=== PATIENT | female | born 1980 | race Two or more races ===

== ENCOUNTER 2017-05-01 18:38 | Emergency (ER) | payer SELFPAY ==
[2017-05-01 18:38] VITALS: BMI 24.0
[2017-05-01 18:54] VITALS: BP 127/82; RESP 20
--- NOTE | 2017-05-01 19:37 | C.PDOC ---
History Of Present Illness 37 y/o female presents to the ED for evaluation of itchy lesions to arms and torso which began after she consumed some new food earlier today. Patient notes experiencing similar allergic reaction in the past. She notes skin redness that comes and goes. Patient denies fever, chills, throat swelling, difficulty swallowing/breathing. Patient notes taking Benadryl without improvement. Time Seen by Provider: 05/01/17 19:30 Chief Complaint (Nursing): Abnormal Skin Integrity History Per: Patient History/Exam Limitations: no limitations Onset/Duration Of Symptoms: Hrs Current Symptoms Are (Timing): Still Present Location Of Injury: Right: Arm, Left: Arm Quality Of Symptoms: Itching Additional History Per: Patient Past Medical History Reviewed: Historical Data, Nursing Documentation, Vital Signs Vital Signs: Last Vital Signs Temp 98.4 F 05/01/17 20:20 Pulse 81 05/01/17 20:20 Resp 20 05/01/17 20:20 BP 127/82 05/01/17 20:20 Pulse Ox 99 05/01/17 21:54 - Medical History PMH: Gastritis Surgical History: Appendectomy (2013), Family History: States: Unknown Family Hx - Social History Hx Tobacco Use: No Hx Alcohol Use: No Hx Substance Use: No - Immunization History Hx Tetanus Toxoid Vaccination: No Hx Influenza Vaccination: Yes ("January 2016") Hx Pneumococcal Vaccination: Yes Review Of Systems Except As Marked, All Systems Reviewed And Found Negative. Constitutional: Negative for: Fever, Chills ENT: Negative for: Mouth Swelling, Throat Swelling Skin: Positive for: Other (+itchy lesions to b/l arms and torso ) Physical Exam - Physical Exam Appears: Non-toxic, No Acute Distress Skin: Rash (few erythematous pruritic papules to torso, thighs, and back ) Head: Atraumatic Eye(s): bilateral: Normal Inspection Oral Mucosa: Moist Neck: Supple Chest: Symmetrical, No Deformity, No Tenderness Cardiovascular: Rhythm Regular, No Murmur Respiratory: Normal Breath Sounds, No Rales, No Rhonchi, No Wheezing Extremity: Normal ROM, Capillary Refill (less than 2 seconds ) Neurological/Psych: Oriented x3, Normal Speech, Normal Cognition Gait: Steady ED Course And Treatment O2 Sat by Pulse Oximetry: 99 (on RA) Pulse Ox Interpretation: Normal Medical Decision Making Medical Decision Making: pt with itchy rash that gets red, similar to allergic reactions in the past. no diff swallowing or breathing. will d/c with steroids and pepcid, continue with benadryl Disposition Counseled Patient/Family Regarding: Diagnosis, Need For Followup, Rx Given - Disposition Referrals: Aleksandr Alicia MD [Staff Provider] - Disposition: HOME/ ROUTINE Disposition Time: 20:09 Condition: STABLE Additional Instructions: Follow up with your doctor in a few days. Take medications as prescribed and continue taking Benadryl. Return to ER for any worsening symptoms. Avoid new foods. Prescriptions: Famotidine [Pepcid] 20 mg PO DAILY #14 tab predniSONE [predniSONE Tab] 40 mg PO DAILY #8 tab Instructions: Food Allergy (ED) Forms: General Discharge Instructions - Clinical Impression Clinical Impression: Allergic reaction - PA / PIVOT MAKER / Resident Statement MD/DO has reviewed & agrees with the documentation as recorded. - Scribe Statement The provider has reviewed the documentation as recorded by the Scribe (Mignon Florentino) All medical record entries made by the Scribe were at my direction and personally dictated by me. I have reviewed the chart and agree that the record accurately reflects my personal performance of the history, physical exam, medical decision making, and the department course for this patient. I have also personally directed, reviewed, and agree with the discharge instructions and disposition.
[2017-05-01 20:20] VITALS: PULSE 81; TEMP 98.4
[2017-05-01 21:52] VITALS: O2SAT 99
== END 2017-05-01 20:24 | disposition home or self-care (01) ==
LOC: C.ER 18:38
DX: T78.1XXA Other adverse food reactions, not elsewhere classified, initial encounter (principal); X58.XXXA Exposure to other specified factors, initial encounter

== ENCOUNTER 2017-08-18 12:58 | Emergency (ER) | payer OTHER ==
[2017-08-18 12:59] VITALS: BMI 24.0
[2017-08-18 13:15] VITALS: O2SAT 100
--- NOTE | 2017-08-18 13:49 | C.PDOC ---
History Of Present Illness 37 year old female presents to the ED for evaluation of dizziness and low blood pressure which began earlier today. Patient state she was at work when symptoms began. Patient notes she drank some soda and found slight improvement in her symptoms. Patient denies headache, chest pain, nausea, vomiting, extremity numbness/weakness. Time Seen by Provider: 08/18/17 13:26 Chief Complaint (Nursing): Dizziness/Lightheaded History Per: Patient History/Exam Limitations: no limitations Onset/Duration Of Symptoms: Hrs Current Symptoms Are (Timing): Better Associated Symptoms Preceding Syncopal Episode: No Predromal Symptoms (Sudden Onset) Additional History Per: Patient Past Medical History Reviewed: Historical Data, Nursing Documentation, Vital Signs Vital Signs: Last Vital Signs Temp 97.8 F 08/18/17 15:08 Pulse 69 08/18/17 15:08 Resp 18 08/18/17 15:08 BP 109/74 08/18/17 15:08 Pulse Ox 100 08/18/17 15:10 - Medical History PMH: Gastritis Surgical History: Appendectomy (2013), Family History: States: Unknown Family Hx - Social History Hx Tobacco Use: No Hx Alcohol Use: No Hx Substance Use: No - Immunization History Hx Tetanus Toxoid Vaccination: No Hx Influenza Vaccination: Yes ("January 2016") Hx Pneumococcal Vaccination: Yes Review Of Systems Constitutional: Positive for: Other (low blood pressure ) Neurological: Positive for: Dizziness Physical Exam - Physical Exam Appears: Non-toxic, No Acute Distress Skin: Normal Color, Warm, Dry Head: Atraumatic, Normacephalic Eye(s): bilateral: Normal Inspection Oral Mucosa: Moist Neck: Supple Chest: Symmetrical, No Deformity, No Tenderness Cardiovascular: Rhythm Regular, No Murmur Respiratory: Normal Breath Sounds, No Rales, No Rhonchi, No Wheezing Extremity: Normal ROM, Capillary Refill (less than 2 seconds ) Neurological/Psych: Oriented x3, Normal Speech, Normal Cognition Gait: Steady ED Course And Treatment - Laboratory Results Result Diagrams: 08/18/17 14:00 08/18/17 14:00 Lab Interpretation: Normal ECG: Interpreted By Me ECG Rhythm: Sinus Rhythm Rate From EC O2 Sat by Pulse Oximetry: 100 (on RA) Pulse Ox Interpretation: Normal Progress Note: labs and EKG ordered and reviewed. On reassessment, patient is resting comfortably, showing no signs of distress and reports an improvement in her symptoms. Patient is stable for discharge and is advised to follow up with her PMD within 1-2 days for further evaluation and/or return to ED if symptoms worsen. Reassessment Condition: Improved Disposition Counseled Patient/Family Regarding: Studies Performed, Diagnosis, Need For Followup - Disposition Referrals: [facility] [Outside] [facility] [Outside] Disposition: HOME/ ROUTINE Disposition Time: 14:30 Condition: STABLE Additional Instructions: Follow iup with PMD for further evaluation Instructions: Dizziness (ED) Forms: [employer] (South African) - POA Present On Arrival: None - Clinical Impression Clinical Impression: Dizziness - PA / HYGIENE TEACHER / Resident Statement MD/DO has reviewed & agrees with the documentation as recorded. - Scribe Statement The provider has reviewed the documentation as recorded by the Scribe (Mignon Florentino) All medical record entries made by the Scribe were at my direction and personally dictated by me. I have reviewed the chart and agree that the record accurately reflects my personal performance of the history, physical exam, medical decision making, and the department course for this patient. I have also personally directed, reviewed, and agree with the discharge instructions and disposition.
[2017-08-18 14:04] LABS: BASO # 0.1 K/uL (0.0-0.2); BASO % 0.8 % (0.0-2.0); EOS # 0.1 K/uL (0.0-0.7); HEMATOCRIT 40.4 % (34.0-47.0); LYMPH # 1.4 K/uL (1.0-4.3); LYMPH % 20.2 % (20.0-40.0); MEAN CELL VOLUME 87.5 fL (81.0-99.0); MEAN CORPUSCULAR HEMOGLOBIN 29.5 pg (27.0-31.0); MEAN CORPUSCULAR HGB CONC 33.7 g/dL (33.0-37.0); MEAN PLATELET VOLUME 11.1 fL (7.2-11.7); MONO # 0.7 K/uL (0.0-0.8); MONO % 9.8 % (0.0-10.0); RED CELL DISTRIBUTION WIDTH 13.2 % (11.5-14.5); WHITE BLOOD COUNT 6.7 K/uL (4.8-10.8)
[2017-08-18 14:07] LABS: URINE BACTERIA RARE (<OCC); URINE BILIRUBIN NEGATIVE (NEGATIVE); URINE COLOR Yellow (YELLOW); URINE GLUCOSE (UA) NORMAL (Normal); URINE KETONE NEGATIVE (NEGATIVE); URINE LEUKOCYTE ESTERASE NEG Leu/uL (Negative); URINE PROTEIN NEGATIVE (NEGATIVE); URINE UROBILINOGEN NORMAL mg/dL (0.2-1.0); WBC URINE 1 /hpf (0-5)
[2017-08-18 14:10] LABS: RBC URINE 10 /hpf (0-3); URINE BLOOD 2+ (NEGATIVE)
[2017-08-18 14:12] LABS: CHLORIDE 99 mmol/L (98-107); POTASSIUM 3.8 mmol/L (3.6-5.2); SODIUM 138 mmol/L (132-148)
[2017-08-18 14:15] LABS: BLOOD UREA NITROGEN 10 mg/dL (7-17); CARBON DIOXIDE 25 mmol/L (22-30); GFR AFRICAN-AMERICAN > 60; GLUCOSE,RANDOM 80 mg/dL (65-105)
[2017-08-18 14:16] LABS: CALCIUM 8.7 mg/dl (8.6-10.4)
[2017-08-18 15:09] VITALS: BP 109/74; PULSE 69; RESP 18; TEMP 97.8
--- NOTE | 2017-08-19 15:36 | CARD ---
APPROVED REPORT EKG Measurement Heart [id number] CT 140P37 [id number] <Conclusion> Normal sinus rhythm Nonspecific T wave abnormality Abnormal ECG
== END 2017-08-18 15:09 | disposition home or self-care (01) ==
LOC: C.ER 12:58
DX: R42 Dizziness and giddiness (principal)

== ENCOUNTER 2018-06-16 07:00 | Emergency (ER) | payer OTHER ==
[2018-06-16 07:00] VITALS: BMI 24.0
[2018-06-16 07:09] VITALS: TEMP 98.6
[2018-06-16] MEDS ORDERED: Sodium Chloride 0.9% 1,000 ML IV ONE (07:19)
[2018-06-16 07:33] LABS: BASO # 0.1 K/uL (0.0-0.2); BASO % 0.9 % (0.0-2.0); EOS # 0.2 K/uL (0.0-0.7); EOS % 1.9 % (0.0-4.0); HEMOGLOBIN 14.1 g/dL (11.0-16.0); LYMPH # 2.3 K/uL (1.0-4.3); LYMPH % 25.3 % (20.0-40.0); MEAN CELL VOLUME 89.8 fL (81.0-99.0); MEAN CORPUSCULAR HEMOGLOBIN 30.7 pg (27.0-31.0); MEAN CORPUSCULAR HGB CONC 34.2 g/dL (33.0-37.0); NEUT # 5.6 K/uL (1.8-7.0); NEUT % 60.9 % (50.0-75.0); RBC 4.6 Mil/uL (3.80-5.20); RED CELL DISTRIBUTION WIDTH 13.2 % (11.5-14.5); WHITE BLOOD COUNT 9.2 K/uL (4.8-10.8)
[2018-06-16 07:35] LABS: HCG,QUALITATIVE URINE NEGATIVE (NEGATIVE)
[2018-06-16 07:38] LABS: SQUAMOUS EPITHIAL 5 /hpf (0-5); URINE BACTERIA RARE (<OCC); URINE BILIRUBIN NEGATIVE (NEGATIVE); URINE BLOOD NEGATIVE (NEGATIVE); URINE CLARITY Hazy (Clear); URINE COLOR Yellow (YELLOW); URINE GLUCOSE (UA) NORMAL (Normal); URINE LEUKOCYTE ESTERASE NEG Leu/uL (Negative); URINE PROTEIN NEGATIVE (NEGATIVE); URINE UROBILINOGEN NORMAL mg/dL (0.2-1.0)
[2018-06-16 07:47] LABS: ALB/GLOB RATIO 1.5 (1.0-2.1); ALT/SGPT 39 U/L (9-52); AST/SGOT 26 U/L (14-36); BLOOD UREA NITROGEN 8 mg/dL (7-17); CALCIUM 8.7 mg/dl (8.6-10.4); GFR AFRICAN-AMERICAN > 60; GFR NON-AFRICAN AMERICAN > 60
--- NOTE | 2018-06-16 08:00 | C.PDOC ---
History Of Present Illness 38-year-old female, presents to the emergency department with complaints of four day duration of nausea, non-bloody/non-bilious vomiting and watery diarrhea. Patient developed a fever last night. Notes pain is diffuse, and has worsened over the past few days, prompting visit. Patient states she has decreased PO intake. Denies chest pain, back pain, dizziness, symptoms, or any other associated symptoms. No other complaints at this time. Time Seen by Provider: 06/16/18 07:11 Chief Complaint (Nursing): Abdominal Pain History Per: Patient History/Exam Limitations: no limitations Onset/Duration Of Symptoms: Days Current Symptoms Are (Timing): Still Present Past Medical History Reviewed: Historical Data, Nursing Documentation, Vital Signs Vital Signs: Last Vital Signs Temp 98.6 F 06/16/18 07:05 Pulse 68 06/16/18 09:40 Resp 16 06/16/18 09:40 BP 112/70 06/16/18 09:40 Pulse Ox 99 06/16/18 10:10 - Medical History PMH: Gastritis Surgical History: Appendectomy (2013), Family History: States: No Known Family Hx - Social History Hx Tobacco Use: No Hx Alcohol Use: No Hx Substance Use: No - Immunization History Hx Tetanus Toxoid Vaccination: No Hx Influenza Vaccination: Yes ("January 2016") Hx Pneumococcal Vaccination: Yes Review Of Systems Constitutional: Positive for: Fever, Malaise ENT: Negative for: Ear Pain Cardiovascular: Negative for: Chest Pain, Palpitations Respiratory: Negative for: Shortness of Breath Gastrointestinal: Positive for: Nausea, Vomiting, Abdominal Pain Musculoskeletal: Negative for: Back Pain Neurological: Negative for: Weakness, Numbness, Headache, Dizziness Physical Exam - Physical Exam Appears: Non-toxic, No Acute Distress Skin: Normal Color, Warm, Dry, No Rash Head: Atraumatic, Normacephalic Eye(s): bilateral: Normal Inspection, PERRL Nose: Normal Oral Mucosa: Moist Lips: Normal Appearing Neck: Normal ROM Chest: Symmetrical Cardiovascular: Rhythm Regular, No Murmur Respiratory: Normal Breath Sounds, No Accessory Muscle Use Gastrointestinal/Abdominal: Soft, Tenderness (RLQ), No Guarding, No Rebound Pelvic: Normal External Exam, No Vaginal Bleeding, No Vaginal Discharge, No Cervical Motion Tenderness Extremity: Normal ROM, No Deformity, No Swelling Neurological/Psych: Oriented x3, Normal Speech ED Course And Treatment - Laboratory Results Result Diagrams: 06/16/18 07:29 06/16/18 07:29 O2 Sat by Pulse Oximetry: 99 (RA) Pulse Ox Interpretation: Normal - CT Scan/US US transvaginal Other Rad Studies (CT/US): Read By Radiologist, Radiology Report Reviewed CT/US Interpretation: Accession No. : [id number]. Patient Name / ID : GUSTAVO MEDINA / [id number]. Exam Date : 06/16/2018 08:50:01 ( Approved ). Study Comment : Sex / Age : F / 38Y. Creator : Amie Howard MD. Dictator : Amie Howard MD. Financial Investment Manager : Supervisor Powdered Metal : Amie Howard MD. Approver2 : Report Date : 06/16/2018 09:53:32. My Comment : . Date of service: 06/16/2018. HISTORY: Abdominal pain. COMPARISON: None available. TECHNIQUE: Transabdominal and transvaginal pelvic ultrasound was performed. FINDINGS: UTERUS: Measures 11.7 x 5.3 x 6.5 cm. Anteverted, normal in size and appearance. No fibroid or other mass lesion seen. ENDOMETRIUM: Measures 8.0 mm in diameter. The central endometrial echo complex is normal in appearance. . CERVIX: There is a subcentimeter benign nabothian cyst in the cervix. RIGHT OVARY: Measures 3.7 x 2.8 x 3.1 cm. No solid mass. Normal flow. There is a 2.5 x 2.6 x 2.1 cm septated cyst in the right ovary. LEFT OVARY: Measures 3.2 x 2.3 x 2.9 cm. No solid mass. Normal flow. FREE FLUID: No significant free fluid noted. OTHER FINDINGS: None. IMPRESSION: 1. No evidence for fibroid uterus or endometrial abnormality. 2. 2.6 cm septated cyst in the right ovary. A follow-up ultrasound 3-6 month interval is recommended to assess stability/resolution. Medical Decision Making Medical Decision Making: Plan: * Bloodwork * UA * US Pelvis * Pepcid, IVF, Zofran * Reassess and Disposition Disposition Counseled Patient/Family Regarding: Studies Performed, Diagnosis, Need For Followup, Rx Given - Disposition Disposition: HOME/ ROUTINE Disposition Time: 10:06 Condition: STABLE Prescriptions: Ibuprofen [Motrin] 600 mg PO TID #15 tab Ondansetron ODT [Zofran ODT] 1 odt PO BID PRN #6 odt PRN Reason: Nausea/Vomiting Instructions: Ovarian Cyst (DC) Forms: General Discharge Instructions, [facility] (Honduran), Work Excuse - POA Present On Arrival: None - Clinical Impression Clinical Impression: Ovarian cyst, Abdominal pain, Gastroenteritis - Scribe Statement The provider has reviewed the documentation as recorded by the Scribe (Tri Montoya) All medical record entries made by the Scribe were at my direction and personally dictated by me. I have reviewed the chart and agree that the record accurately reflects my personal performance of the history, physical exam, medical decision making, and the department course for this patient. I have also personally directed, reviewed, and agree with the discharge instructions and disposition.
[2018-06-16 09:40] VITALS: BP 112/70; PULSE 68; RESP 16
--- NOTE | 2018-06-16 09:54 | US ---
Date of service: 06/16/2018 HISTORY: Abdominal pain COMPARISON: None available. TECHNIQUE: Transabdominal and transvaginal pelvic ultrasound was performed. FINDINGS: UTERUS: Measures 11.7 x 5.3 x 6.5 cm. Anteverted, normal in size and appearance. No fibroid or other mass lesion seen. ENDOMETRIUM: Measures 8.0 mm in diameter. The central endometrial echo complex is normal in appearance. . CERVIX: There is a subcentimeter benign nabothian cyst in the cervix. RIGHT OVARY: Measures 3.7 x 2.8 x 3.1 cm. No solid mass. Normal flow. There is a 2.5 x 2.6 x 2.1 cm septated cyst in the right ovary. LEFT OVARY: Measures 3.2 x 2.3 x 2.9 cm. No solid mass. Normal flow. FREE FLUID: No significant free fluid noted. OTHER FINDINGS: None. IMPRESSION: 1. No evidence for fibroid uterus or endometrial abnormality. 2. 2.6 cm septated cyst in the right ovary. A follow-up ultrasound 3-6 month interval is recommended to assess stability/resolution.
[2018-06-16 10:09] VITALS: O2SAT 99
== END 2018-06-16 10:17 | disposition home or self-care (01) ==
LOC: C.ER 07:00
DX: K52.9 Noninfective gastroenteritis and colitis, unspecified (principal); N83.209 Unspecified ovarian cyst, unspecified side; R10.31 Right lower quadrant pain
CPT/HCPCS: 76830; 76856; 80053; 81001; 84703; 85025; 96361; 96374; 96375; 99285; J2405; J7030

== ENCOUNTER 2018-08-05 18:11 | Emergency (ER) | payer OTHER ==
[2018-08-05 18:29] VITALS: BMI 28.3
[2018-08-05 18:31] VITALS: RESP 20
[2018-08-05] MEDS ORDERED: Sodium Chloride 0.9% 1,000 ML IV ONE (20:17)
--- NOTE | 2018-08-05 20:17 | C.PDOC ---
History Of Present Illness 38 y/o female presents to the ED complaining of LUQ pain, worsening for 1 week. Associated with some nausea and diarrhea. No fever or chills. Patient is otherwise tolerating PO. Time Seen by Provider: 08/05/18 20:16 Chief Complaint (Nursing): Abdominal Pain History Per: Patient History/Exam Limitations: no limitations Onset/Duration Of Symptoms: Days Current Symptoms Are (Timing): Still Present Severity: Mild Pain Scale Rating Of: 4 Location Of Pain/Discomfort: LUQ Radiation Of Pain To:: None Quality Of Discomfort: "Pain" Associated Symptoms: Nausea, Diarrhea Alleviating Factors: None Recent travel outside of the [place]: No Abnormal Vaginal Bleeding: No Past Medical History Reviewed: Historical Data, Nursing Documentation, Vital Signs Vital Signs: Last Vital Signs Temp 98.4 F 08/05/18 18:29 Pulse 79 08/05/18 21:15 Resp 20 08/05/18 21:15 BP 116/77 08/05/18 21:15 Pulse Ox 97 08/05/18 21:15 - Medical History PMH: Gastritis Surgical History: Appendectomy (2013), Family History: States: Unknown Family Hx - Social History Hx Tobacco Use: No Hx Alcohol Use: Yes Hx Substance Use: No - Immunization History Hx Tetanus Toxoid Vaccination: No Hx Influenza Vaccination: No ("January 2016") Hx Pneumococcal Vaccination: Yes Review Of Systems Constitutional: Negative for: Fever, Chills Cardiovascular: Negative for: Chest Pain Respiratory: Negative for: Shortness of Breath Gastrointestinal: Positive for: Nausea, Abdominal Pain, Diarrhea Neurological: Negative for: Weakness, Numbness Physical Exam - Physical Exam Appears: Non-toxic, No Acute Distress Skin: Warm, Dry Head: Normacephalic Eye(s): bilateral: Normal Inspection Oral Mucosa: Moist Neck: Trachea Midline, Supple Chest: Symmetrical Cardiovascular: Rhythm Regular Respiratory: No Rales, No Rhonchi, No Wheezing Gastrointestinal/Abdominal: Bowel Sounds (active), Soft, Tenderness (Mild left upper quadrant tenderness), No Guarding, No Rebound Extremity: Bilateral: Atraumatic, Normal Color And Temperature, Normal ROM Neurological/Psych: Oriented x3, Normal Speech Gait: Steady ED Course And Treatment - Laboratory Results Result Diagrams: 08/05/18 21:16 08/05/18 21:16 O2 Sat by Pulse Oximetry: 98 (RA) Pulse Ox Interpretation: Normal Progress Note: Blood work and urine sent. Administered IVF hydration. Disposition Counseled Patient/Family Regarding: Studies Performed, Diagnosis, Need For Followup, Rx Given - Disposition Referrals: Reuben Schneider [Staff Provider] - Disposition: HOME/ ROUTINE Disposition Time: 20:16 Condition: FAIR Additional Instructions: Please return if symptoms recur Prescriptions: Dicyclomine [Dicyclomine HCl] 10 mg PO QID #16 cap Ondansetron ODT [Zofran ODT] 1 odt PO BID PRN #10 odt PRN Reason: Nausea/Vomiting Instructions: Acute Abdomen (Belly Pain), Adult (DC), Nausea and Vomiting, Adult (DC) Forms: [employer] (Faroese) - Clinical Impression Clinical Impression: Nausea, Vomiting, Abdominal pain - Scribe Statement The provider has reviewed the documentation as recorded by the Scribe (Lyssa Thrasher) Provider Attestation: All medical record entries made by the Scribe were at my direction and personally dictated by me. I have reviewed the chart and agree that the record accurately reflects my personal performance of the history, physical exam, medical decision making, and the department course for this patient. I have also personally directed, reviewed, and agree with the discharge instructions and disposition.
[2018-08-05 21:23] LABS: BASO # 0.1 K/uL (0.0-0.2); BASO % 0.7 % (0.0-2.0); EOS # 0.2 K/uL (0.0-0.7); EOS % 2.6 % (0.0-4.0); LYMPH # 2.7 K/uL (1.0-4.3); LYMPH % 31.4 % (20.0-40.0); MEAN CELL VOLUME 88.8 fL (81.0-99.0); MEAN CORPUSCULAR HEMOGLOBIN 30.3 pg (27.0-31.0); MEAN CORPUSCULAR HGB CONC 34.2 g/dL (33.0-37.0); MEAN PLATELET VOLUME 10.6 fL (7.2-11.7); MONO # 0.9 K/uL (0.0-0.8); MONO % 10.4 % (0.0-10.0); NEUT # 4.8 K/uL (1.8-7.0); NEUT % 54.9 % (50.0-75.0); NRBC % 0.2 % (0.0-2.0); RBC 4.61 Mil/uL (3.80-5.20); RED CELL DISTRIBUTION WIDTH 12.9 % (11.5-14.5); WHITE BLOOD COUNT 8.7 K/uL (4.8-10.8)
[2018-08-05 21:27] LABS: HCG,QUALITATIVE URINE NEGATIVE (NEGATIVE)
[2018-08-05 21:29] LABS: SQUAMOUS EPITHIAL 1 /hpf (0-5); URINE BILIRUBIN NEGATIVE (NEGATIVE); URINE BLOOD NEGATIVE (NEGATIVE); URINE CLARITY Clear (Clear); URINE COLOR Straw (YELLOW); URINE GLUCOSE (UA) NORMAL (Normal); URINE LEUKOCYTE ESTERASE NEG Leu/uL (Negative); URINE PROTEIN NEGATIVE (NEGATIVE); URINE UROBILINOGEN NORMAL mg/dL (0.2-1.0)
[2018-08-05 21:30] LABS: PROTHROMBIN TIME 10.5 SECONDS (9.7-12.2)
[2018-08-05 21:34] LABS: ALB/GLOB RATIO 1.4 (1.0-2.1); ALBUMIN 4.6 g/dL (3.5-5.0); ALT/SGPT 74 U/L (9-52); AST/SGOT 47 U/L (14-36); BLOOD UREA NITROGEN 10 mg/dL (7-17); CALCIUM 9.3 mg/dl (8.6-10.4); GFR NON-AFRICAN AMERICAN > 60; LIPASE 166 U/L (23-300)
[2018-08-05] MEDS ORDERED: Iodixanol 320 MG/ML 100 ML BOTTLE IV ONE (21:55)
[2018-08-06 00:19] VITALS: O2SAT 98
[2018-08-06 00:41] VITALS: BP 122/74; PULSE 84; TEMP 98.7
--- NOTE | 2018-08-06 09:47 | CT ---
Date of service: 08/05/2018 PROCEDURE: CT Abdomen and Pelvis with contrast HISTORY: Left upper quadrant pain COMPARISON: 10/01/2015. TECHNIQUE: CT scan of the abdomen and pelvis was performed after administration of intravenous contrast. Oral contrast was not administered. Coronal and sagittal reformatted images were obtained. Contrast dose: 100 mL Visipaque Radiation dose: Total exam DLP = mGy-cm. This CT exam was performed using one or more of the following dose reduction techniques: Automated exposure control, adjustment of the mA and/or kV according to patient size, and/or use of iterative reconstruction technique. FINDINGS: LOWER THORAX: There is linear atelectasis/scarring in the lingula and left lateral lung base. LIVER: Fatty liver. No gross lesion or ductal dilatation. GALLBLADDER AND BILE DUCTS: No calcified gallstones. PANCREAS: Normal in size with homogeneous enhancement. No gross lesion or ductal dilatation. SPLEEN: Normal in size with homogeneous enhancement. ADRENALS: No discrete nodule. KIDNEYS AND URETERS: Normal in size with homogeneous enhancement. No hydronephrosis. No solid mass. VASCULATURE: Unremarkable. No aortic aneurysm. BOWEL: The small bowel loops are normal in caliber. There is moderate amount of stool in the colon. No obstruction. No gross mural thickening. APPENDIX: Normal appendix. PERITONEUM: No free fluid. No free air. LYMPH NODES: No enlarged lymph nodes. BLADDER: Decompressed. REPRODUCTIVE: The uterus is normal in size. BONES: No acute fracture. OTHER FINDINGS: There are innumerable tiny soft tissue nodules in bilateral buttocks which may represent fat necrosis or injection granulomas. IMPRESSION: No acute abdominal or pelvic abnormality. Constipation. Fatty liver. A preliminary report was provided by [employer].
== END 2018-08-05 23:55 | disposition home or self-care (01) ==
LOC: C.ER 18:11
DX: R10.12 Left upper quadrant pain (principal); R11.2 Nausea with vomiting, unspecified
CPT/HCPCS: 74177; 80053; 81001; 83690; 84703; 85025; 85610; 85730; 99285; J7030; Q9967

== ENCOUNTER 2018-12-28 11:02 | Day surgery (SDC) | payer OTHER ==
[2018-12-28 11:46] VITALS: O2SAT 100
[2018-12-28] MEDS ORDERED: Lidocaine Hydrochloride 5 ML INJ ONE (12:40)
[2018-12-28] MEDS ORDERED: Propofol 10 mg/ml Inj (20 ML) ONE (12:40)
[2018-12-28] MEDS ORDERED: Lidocaine Hydrochloride 10 ML INJ ONE (12:44)
[2018-12-28 13:10] VITALS: TEMP 97.8
[2018-12-28 14:26] VITALS: BP 120/66; PULSE 82; RESP 16
== END 2018-12-28 14:31 | disposition home or self-care (01) ==
LOC: C.ENDO 11:02
PROVIDERS: ATTEND Internal Medicine Gastroenterology
DX: K29.50 Unspecified chronic gastritis without bleeding (principal); R10.13 Epigastric pain; K44.9 Diaphragmatic hernia without obstruction or gangrene
CPT/HCPCS: 43239; 84703; 88305; 88313; 88342; J2001; J2405; J2704

== ENCOUNTER 2019-01-09 18:55 | Emergency (ER) | payer OTHER ==
[2019-01-09 18:55] VITALS: BMI 28.3
[2019-01-09 19:06] VITALS: BP 120/75; PULSE 70; RESP 18; TEMP 97.5; O2SAT 97
[2019-01-09] MEDS ORDERED: Alum-Mag Hydrox-Simethicone Susp (30 mL) PO STA (19:45)
[2019-01-09] MEDS ORDERED: Pantoprazole 40 mg EC Tab PO STA (19:45)
--- NOTE | 2019-01-09 19:50 | C.PDOC ---
History Of Present Illness Patient is a 38 year old female who presents to the ED for crampy left sided abdominal discomfort with loose stool about 4/6 times a day for the past 2 weeks. Patient reports that she occasionally vomits, but is able to tolerate PO intake. She states that she has had nausea, vomiting, and diarrhea since October 2018. Patient had an upper endoscopy done on December 28 which resulted with a 2cm hiatal hernia and gastritis. Pathology reports were unremarkable and patient has had good compliance with Protonix and a gluten free diet. She denies any recent travel, sick contacts, fever, chills, or CP. Time Seen by Provider: 01/09/19 19:35 Chief Complaint (Nursing): Abdominal Pain History Per: Patient History/Exam Limitations: no limitations Onset/Duration Of Symptoms: Other (2 weeks ) Current Symptoms Are (Timing): Still Present Associated Symptoms: Vomiting, Diarrhea (loose). denies: Fever, Chills, Chest Pain Additional History Per: Patient Past Medical History Reviewed: Historical Data, Nursing Documentation, Vital Signs Vital Signs: Last Vital Signs Temp 97.5 F L 01/09/19 19:03 Pulse 70 01/09/19 19:03 Resp 18 01/09/19 19:03 BP 120/75 01/09/19 19:03 Pulse Ox 97 01/09/19 19:03 - Medical History PMH: Asthma, Gastritis, Migraine Denies: Chronic Kidney Disease Surgical History: Appendectomy (2013), Family History: States: Unknown Family Hx - Social History Hx Tobacco Use: No Hx Alcohol Use: Yes Hx Substance Use: No - Immunization History Hx Tetanus Toxoid Vaccination: No Hx Influenza Vaccination: No ("January 2016") Hx Pneumococcal Vaccination: Yes Review Of Systems Constitutional: Negative for: Fever, Chills Cardiovascular: Negative for: Chest Pain Gastrointestinal: Positive for: Nausea, Vomiting, Abdominal Pain, Diarrhea (loose) Physical Exam - Physical Exam Appears: Non-toxic, No Acute Distress, Other (obese female ) Skin: Normal Color, Warm, Dry Head: Atraumatic, Normacephalic Oral Mucosa: Moist Neck: Normal ROM, Supple Chest: Symmetrical, No Deformity Cardiovascular: Rhythm Regular, No Murmur Respiratory: Normal Breath Sounds Gastrointestinal/Abdominal: Tenderness (mild tenderness to LUQ ), Other (belly obese ) Extremity: Normal ROM Neurological/Psych: Oriented x3, Normal Speech, Normal Cognition ED Course And Treatment O2 Sat by Pulse Oximetry: 97 (on RA) Pulse Ox Interpretation: Normal Medical Decision Making Medical Decision Making: Plan: Maalox Plus 30ml PO Protonix 40mg PO persistent occasional n/v/d since October [address] Mohamud 12/28/18 gastritis and normal bx's sig for some increased lymphocytes intestinal lining now recurring in past 1-2 weeks poor home relief regimen maalox and protonix reinforced. no s/s of dehydration nor sig weight loss. Disposition Doctor Will See Patient In The: Office Counseled Patient/Family Regarding: Studies Performed, Diagnosis - Disposition Referrals: Reuben Schneider [Staff Provider] - Disposition: HOME/ ROUTINE Disposition Time: 19:50 Condition: GOOD Additional Instructions: maalox 30 cc's 5x'day Pepcid/Protonix daily as previously prescribed diet changes avoid gluten as able. Follow-up with Dr. Hagan Call for appt. intestinal biopsy results from upper endoscopy 12/28 are unremarkable. Instructions: Diarrhea in Adolescents and Adults Forms: [employer] (Monegasque) - Clinical Impression Clinical Impression: Abdominal pain, colicky, Diarrhea - Scribe Statement The provider has reviewed the documentation as recorded by the Mustaphaibcarlin Lopez All medical record entries made by the Scribe were at my direction and personally dictated by me. I have reviewed the chart and agree that the record accurately reflects my personal performance of the history, physical exam, medical decision making, and the department course for this patient. I have also personally directed, reviewed, and agree with the discharge instructions and disposition.
[2019-01-09] MEDS ORDERED: Pantoprazole 40 mg EC Tab PO ONE (19:56)
[2019-01-09] MEDS ORDERED: Alum-Mag Hydrox-Simethicone Susp (30 mL) ONE (19:56)
== END 2019-01-09 20:03 | disposition home or self-care (01) ==
LOC: C.ER 18:55
DX: R10.84 Generalized abdominal pain (principal); R19.7 Diarrhea, unspecified